=== PATIENT | male | born 1990 | race Caucasian/White ===

== ENCOUNTER 2016-12-09 06:28 | Emergency (ER) | payer OTHER ==
[~2016-12-09] VITALS: Ht 180.3 cm; Wt 77.2 kg
[2016-12-09 06:31] VITALS: BP 127/77; PULSE 65; RESP 16; O2SAT 99
--- NOTE | 2016-12-09 06:42 | ED.REPORT ---
HPI-Abd Pain M Under 39 Date of Service December 09, 2016 ED Provider: Turner You DO The patient is a 26 year old male with history of GERD and prior perforated appendix s/p multiple surgeries, who presents to the emergency department for abnormal labs. The patient has had problems with vomiting since he was about 19 and says for the last 2-3 weeks he has been having more problems with vomiting. Yesterday he went to urgent care and was told he had pancreatitis and was told to come to the ED. He states this is similar to the many times he has had these symptoms over the last several years. He reports his lipase was 150 yesterday so the urgent care sent him here. At this time he complains of 3/10 abdominal pain, nausea and vomiting. He normally takes compazine and Zofran for nausea and vomiting. He denies fever, chills, bloody emesis, diarrhea, constipation, bloody stools or melena. The patient has previous had an abdominal CT scan with no acute findings. He has also seen a home appliance tech and had an endoscopy and colonoscopy in the past. He does not currently take any medication for his reflux. Nursing Notes Stated Complaint: ABDOMINAL PAIN Chief Complaint: Male Abdominal Pain Nursing Notes Reviewed: Yes Allergies: Coded Allergies: ibuprofen (Unverified Adverse Reaction, Mild, 12/09/16) Scheduled Famotidine (Pepcid) 40 Mg Tablet 40 MG PO HS Scheduled PRN Ondansetron ODT (Zofran ODT) 4 Mg Tablet 4 MG PO Q4H PRN PRN For Nausea Prochlorperazine Maleate (Compazine) 10 Mg Tablet 10 MG PO TID PRN PRN For Nausea/Vomiting General Time Seen by MD: 06:41 Chief Complaint Other (abnormal labs) Hx Obtained From: Patient Arrived By: Walk-in Sudden in Onset?: No Onset Occurred: More than a week ago... 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 No history of IV drug use. Alcohol Use: "Social" Drug Use: Denies drug use Other Social History: Good social support, Local resident Occupation lives with girfriend, no work or school Ambulatory Status Independent Review of Systems Constitutional: Denies: Chills, Fever GI: Reports: Abdominal pain, Nausea, Vomiting, Denies: Bloody/tarry stool, Constipation, Diarrhea, Hematemesis, Hematochezia , Melena Complete sys rev & neg: except as marked. Physical Exam Initial Vital Signs Vital Signs (First) Date Time Temp Pulse Resp B/P Pulse Ox O2 Delivery O2 Flow Rate FiO2 12/09/16 06:31 36.3 65 16 127/77 99 Room Air Initial VS: Reviewed Head / Eyes: Atraumatic, Normocephalic, PERRL ENT: Mucous membranes moist, Conjunctiva normal, No scleral icterus Neck: Supple, Non-tender, Full range of motion Lymphatic: No lymphadenopathy Extremities: Vascular intact, Neuro intact, No swelling, No tenderness Skin: Warm, Dry, No cyanosis Neurologic: Alert, Oriented, Nonfocal Psychiatric: Mood/affect normal, Behavior normal, Normal thought content General/Constitutional: Awake, Alert, No acute distress, Well appearing Thin Respiratory / Chest: Atraumatic, Breath sounds NL, Breath sounds = bilat, No respiratory distress, No rales, No rhonchi, No wheezing, No stridor Cardiovascular: Heart rate NL, Regular rhythm, Heart sounds NL, Peripheral circulation NL Abdomen: Soft, Non-tender, McBurney's non-tender, No guarding, No rebound, BS normoactive, No distention, No hernia, No palpable mass Midline laparotomy scar, old. Back: Inspection NL, Non-tender, No CVA tenderness Interpretation & Diagnostics Interpretation & Diagnostics: Labs from urgent care from yesterday: lipase 150, otherwise CBC and CMP were normal Lab Results Interpretation Result Diagram: 12/09/16 0710 12/09/16 0710 Test 12/09/16 07:10 12/09/16 07:17 12/09/16 07:40 White Blood Count 6.1th/mm3 (3.8-10.1) Red Blood Count 4.52mil/mm3 (4.40-5.80) Hemoglobin 14.7g/dL (13.8-17.2) Hematocrit 42.5% (41.0-50.0) Mean Corpuscular Volume 94.0fL (81-100) Mean Corpuscular Hemoglobin 32.5pg (27.0-35.0) Mean Corpuscular Hemoglobin Concent 34.6% (32.0-37.0) Red Cell Distribution Width 12.6% (12.3-15.4) Platelet Count 203bil/L (150-400) Neutrophils (%) (Auto) 65.8% (40-74) Lymphocytes (%) (Auto) 21.3% (14-46) Monocytes (%) (Auto) 11.2% (4-12) Eosinophils (%) (Auto) 1.2% (0-5) Basophils (%) (Auto) 0.2% (0-3) Sodium Level 140mEq/L (134-144) Potassium Level 4.3mEq/L (3.5-5.2) Chloride Level 105mEq/L (97-108) Carbon Dioxide Level 23mmol/L (18-29) Blood Urea Nitrogen 11mg/dL (6-20) Creatinine 0.82mg/dL (0.76-1.27) Estimat Glomerular Filtration Rate 120mL/min (>59) Glucose Level 101mg/dL (60-99) Calcium Level 9.0mg/dL (8.5-10.1) Magnesium Level 1.9mg/dL (1.6-2.6) Total Bilirubin 0.6mg/dL (0.0-1.2) Aspartate Amino Transf (AST/SGOT) 17U/L (0-50) Alanine Aminotransferase (ALT/SGPT) 7U/L (0-44) Alkaline Phosphatase 49U/L (25-150) Total Protein 6.3g/dL (6.4-8.4) Albumin 3.8g/dL (3.4-5.0) Lipase 45U/L (13-60) Urine Color Straw (YELLOW) Urine Appearance Clear (CLEAR,HAZY) Urine pH 5.5 (5.0-8.0) Urine Specific [place] 1.025 (1.003-1.035) Urine Protein Negativemg/dL (NEG,TRACE) Urine Glucose (UA) Negativemg/dL (NEGATIVE) Urine Ketones Negativemg/dL (NEGATIVE) Urine Occult Blood Negative (NEGATIVE) Urine Nitrite Negative (NEGATIVE) Urine Bilirubin Negative (NEGATIVE) Urine Urobilinogen Normalmg/dL (NORMAL) Urine Leukocyte Esterase Negative (NEGATIVE) Urine RBC 0-2/hpf (0-2) Urine WBC 0-5/hpf (0-5) Urine Epithelial Cells Occasional/hpf (NONE-MOD) Urine Crystals None seen (NONE SEEN) Urine Bacteria None/hpf (NONE-FEW) Urine Hyaline Casts None/lpf (NONE) Urine Granular Casts None seen (NONE SEEN) Urine Waxy Casts None seen (NONE SEEN) Urine Red Blood Cell Casts None seen (NONE SEEN) Urine White Blood Cell Casts None seen (NONE SEEN) Urine Mucus None seen (None Seen) Urine Trichomonas None seen (NONE SEEN) Urine Yeast None (NONE SEEN) Urinalysis Comment None Urine Culture Reflexed Not indicated Hold Urine Received (Received) Hold [place] Top Tube Received (Received) Re-Eval/Medical Decision Med Decision/Clinical Course Overall patient has chronic abdominal pain, nausea, vomiting. I do not suspect any emergent medical conditions. This is not pancreatitis. It sounds like he has had extensive workup over the past few years and this is similar. His abdominal exam is benign I do not suspect an acute emergent medical condition. He has tolerated oral intake already this morning. Will discharge with Pepcid, Zofran, Compazine. Recommend close follow-up with gastroenterology. Return in follow-up precautions given. Source of Hx: Old records Re-Evaluation/Progress : Time of Eval: 08:01 Re-Evaluation/Progress Note: Rechecked the patient. He is feeling better. Discussed results, diagnosis, and plan for discharge. All questions were addressed. Counseled Regarding: Diagnosis, Lab results, Need for follow-up, When/why to return to ED Patient Discharge & Departure Primary Impression: Nausea and vomiting Vomiting type: unspecified Vomiting Intractability: unspecified Qualified Code: R11.2 - Nausea with vomiting, unspecified Disposition: Home Discharge Condition All VS Reviewed: Yes Condition: Stable Patient Instructions: Acute Nausea and Vomiting (GEN) Additional Instructions: Thank you for entrusting us with your care today. Your labs today look good. Your lipase was slightly elevated but not at the level that requires hospital admission. Continue to use the Zofran and Compazine as needed for your nausea. I recommend taking a Pepcid before bed at night. This may help your symptoms in the morning. Make sure to drink plenty of fluids. When you start to feel like eating, you should start with foods like bananas, rice, applesauce, and toast. Your next step should be to followup with a home appliance tech. We have given you a referral to Dr. Barnhart. Seek care sooner for increased pain, uncontrollable vomiting, fever, inability to keep fluids down, or any other new or concerning symptoms. Referrals: Niranjan Cintron MD (PCP) Jose Barnhart MD Attestation Portions of this note were transcribed by Madeline Martínez. I, Dr. You personally performed the history, physical exam and medical decision-making; I reviewed and confirmed the accuracy of the information in the transcribed note. Signed by: Carolin Farnsworth, 12/09/2016 at 0815. copies to: Niranjan Cintron MD; Jose Barnhart MD, Timothy S DO December 09, 2016 06:42 Madeline Martínez December 09, 2016 07:02
[2016-12-09] MEDS ORDERED: 0.9% Sodium Chloride 1,000 ML IV ONE (06:59)
[2016-12-09] MEDS ORDERED: Ondansetron 2 mg/mL 2 mL Inj IVPUSH PRN (07:00)
[2016-12-09 07:19] LABS: BASOPHILS % (AUTO) 0.2 % (0-3); EOSINOPHILS % (AUTO) 1.2 % (0-5); MONOCYTES % (AUTO) 11.2 % (4-12); Mean Corpuscular Hemoglobin 32.5 pg (27.0-35.0); NEUTROPHILS % (AUTO) 65.8 % (40-74); Platelet Count 203 bil/L (150-400)
[2016-12-09 07:48] LABS: APPEARANCE,URINE CLEAR (CLEAR,HAZY); COLOR,URINE STRAW (YELLOW); OCCULT BLOOD,URINE NEGATIVE (NEGATIVE); PH,URINE 5.5 (5.0-8.0); UROBILINOGEN,URINE NORMAL (NORMAL)
[2016-12-09 07:48] LABS: Magnesium 1.9 mg/dL (1.6-2.6)
[2016-12-09] MEDS ORDERED: PROC-4 PO (08:11)
[2016-12-09] MEDS ORDERED: ONDA4TAB9 PO (08:11)
[2016-12-09] MEDS ORDERED: FAMO40TA72 PO (08:11)
[2016-12-09 08:19] VITALS: BP 114/65; PULSE 63; RESP 12; O2SAT 97
== END 2016-12-09 08:11 | disposition home or self-care (01) ==
LOC: SED 06:28
DX: R11.2 Nausea with vomiting, unspecified (principal); R10.9 Unspecified abdominal pain; G89.29 Other chronic pain; K21.9 Gastro-esophageal reflux disease without esophagitis; F17.200 Nicotine dependence, unspecified, uncomplicated; Z98.890 Other specified postprocedural states; Z88.8 Allergy status to other drugs, medicaments and biological substances
CPT/HCPCS: 36415; 80053; 81000; 83690; 83735; 85025; 96360; 99284; J7030

== ENCOUNTER 2016-12-31 11:22 | Day surgery (SDC) | payer OTHER ==
[~2016-12-31] VITALS: Ht 177.8 cm; Wt 75.0 kg
[~2016-12-31 11:22] MED LIST: FAMO40TA72 PO; Lactated Ringer's 1,000 ML IV ONE; ONDA4TAB9 PO; PROC-4 PO
[2016-12-31] MEDS ORDERED: Propofol 10,000 mCg/mL 20 mL Inj ONE (11:23)
[2016-12-31] MEDS ORDERED: fentaNYL-PF 50 mCg/mL 2 mL Inj ONE (11:23)
[2016-12-31] MEDS ORDERED: SUCR1ORA2 PO (11:37)
[2016-12-31 11:41] VITALS: BP 116/70; PULSE 82; RESP 20; O2SAT 96
--- NOTE | 2016-12-31 12:56 | PCM.HPANE ---
Patient Data Date of Service: Dec 31, 2016 ([id number]) Surgeon Admitting Provider: Attending Provider:Chance Naik MD Primary Care Physician:Niranjan Cintron MD Other Provider:Joan Prather Anesthesia Reason for Visit Nausea And Vomiting In Adult Ht/WT & BMI Height (Feet): 5 Height (Inches): 10 Weight (Kilograms): 75 Body Mass Index 23.00 Allergies Coded Allergies: ibuprofen (Unverified Adverse Reaction, Mild, 12/31/16) Past Anesthesia History Anesthesia History: Denies:: Abnormal Airway, Anesthesia Reactions, Difficult Intubation, Fam Anesthesia Reaction, Fam Malignant Hypertherm, Malignant Hyperthermia Diabetes History Hx Diabetes?: No MRSA MRSA: No Medications Active Scripts Prochlorperazine Maleate (Compazine)10 Mg [id number] Mg PO TID PRN For Nausea/ Vomiting #15 TABLET Prov:Turner You DO 12/09/16 Ondansetron ODT (Zofran ODT)4 Mg Tablet4 Mg PO Q4H PRN For Nausea #14 TABLET Prov:Turner You DO 12/09/16 Famotidine (Pepcid)40 Mg [id number] Mg PO HS #30 TABLET Prov:Turner You DO 12/09/16 Reported Medications Sucralfate Susp (Carafate Susp)1 Gm/10 Ml Oral.susp1 Gm PO QID Ref 0 12/31/16 History History of ENT Problems?: Yes HEENT History: Denies:: Abnormal Airway Difficult Intubation Hearing Problem Denture Type: None Teeth Condition: Broken Teeth Tooth Decay Inflamed Gums Other HEENT Pertinent History: PT STATES RIGHT AND LEFT UPPER MOLARS ARE INFLAMMED AND POSSIBLY NEED TO BE REMOVED, SAYS THEY ARE SENSITIVE AT TIMES AND HE NEEDS TO GO TO THE DENTIST TO GET THEM FIXED. STATES HE DOESNT THINK THEY ARE LOOSE THOUGH. Hx of Heart Problems?: No Cardiovascular History: Denies:: Congestive Heart Failure Hypertension Hx of Respiratory Problem?: No Respiratory History: Positive for:: Cough Denies:: Tuberculosis Hx Neurologic Problems?: No Neurological History: Denies:: CVA Hx of GI Problems?: Yes Gastrointestinal History: Positive for:: Gastroesphageal Reflux Denies:: Hepatitis Hx of Problems?: No Hx Musculoskeletal Problems?: No Musculoskeletal History: Denies:: Joint Replacement Psycho Social History: Denies:: Anxiety Hx Depression Hx Surgeries?: Yes (APPENDECTOMY) Hx Any Other Health Problems?: No Hx Diabetes: No Hx Alcohol Use: Yes (OCCAS)Hx Substance Use: Yes (OCCASIONAL MARIJUANA, TRYING TO QUIT) Smoking Status: Current Every Day Smoker Have You Smoked inLast 12 mo: Yes Stop/Bang Treated for Sleep Apnea?: No Do You Have a CPAP Machine?: No S-Snoring: Do You Snore Loudly: Yes T-Tired: feel tired, fatigued: No O-Obsered: Observed not breath: No A- Age over 50: No G- Gender Male: Yes JALEEL Risk Assessment: Low Risk, <3 Yes Risk Assessment Category Category 1A: Patient has history of documented sleep apnea, and HAS NOT received any narcotic, sedative or anesthesia administration during this stay. Category 1B: Patient has history of documented sleep apnea, and HAS received any narcotic , sedative or anesthesia administration during this stay Category 2: Patient has SUSPECTED Obstructive Sleep Apnea, and HAS received any narcotic , sedative or anesthesia administration during this stay. Category 3: Patient has SUSPECTED Obstructive Sleep Apnea and HAS NOT received narcotic, sedative or anesthesia administration during this stay. Category 4: Outpatient in Procedural Areas with known sleep apnea or who screen positive for High Risk via the STOP/BANG questionnaire. Exam Exam Vital Signs Vital Signs Date Time Temp Pulse Resp B/P Pulse Ox O2 Delivery O2 Flow Rate FiO2 12/31/16 11:41 82 20 116/70 96 Room Air General Appearance: Alert, Oriented X3, Cooperative HEENT/AIRWAY: MP 1 Lungs: Clear to Auscultation Heart: Exam Unremarkable Plan Impression Patient chart reviewed, patient interviewed and anesthestic plan with risks, benefits, and alternatives discussed, and informed consent obtained. NPO per Anesth. Guidelines: Yes ASA Physical Status: ASA2 Mod Systemic Disease Anesthetic Plan: GA Bene/Risks/Altern/Consents: Yes HP Complete Prior to Induction: Yes aMnish Rosa MD Dec 31, 2016 12:56
--- NOTE | 2016-12-31 13:17 | PCM.ENDEGD ---
EGD Date of Service: Dec 31, 2016 Physician Chance Naik MD Pre Procedure Diagnosis: Nausea vomiting Post Procedure Dx & Findings: Irregular Z line Procedure Esophagogastroduodenoscopy After proper sedation, Olympus video endoscope was inserted into patient's mouth and esophagus was successfully intubated. Scope introduced esophagus. Esophagus showed normal shiny whitish mucosa consistent with squamous cell component. Z line was partly irregular at 46 cm from the incisors. Biopsies done. Scope was further advanced to the stomach. Stomach showed normal shiny mucosa with normal appearing rugae folds without any ulcer mass erosion. Cardia fundus body antrum pylorus were all visualized. Retroflexion was done. Stomach was easily inflated and deflatable using air. Scope further events to the distal duodenum. Duodenum revealed normal villous structures with normal appearing folds without any mass ulcer erosion. Impression Irregular Z line No cause of nausea vomiting Recommendation Avoid biopsies Presedation Assessment Risks and Benefits Informed consent was obtained from the patient after all risks and benefits including but not limited to drug reaction, infection, pain, bleeding, perforation, as well as alternatives were discussed. Patient monitoring Continuous pulse oximetry, cardiac monitoring, blood pressure monitoring, IV access, and oxygen at 2L per nasal cannula. Complications There were no periprocedural complications identified. Post Procedure Plan Post Procedure Recommendations 1. Restrict activities today. 2. Resume normal activities in the morning. 3. Resume medications. 4. GERD behavioral modification: - Avoid fatty, acidic, spicy, large meals - Do not lie down after meals - Do not eat or drink anything for at least 2 1/2 hours before going to bed at night - Discontinue tobacco and alcohol - Decrease or avoid caffeine - Avoid chocolate and mints - Decrease weight - Avoid aspirin and non steroidal anti-inflammatory agents (NSAID) such as Aleve, Advil, Mobic, Naproxen, Ibuprofen, etc 5. Add proton pump inhibitor. Take 30 minutes before 1st meal of the day. 6. Patient informed of normal post procedure side effects as bloating, drowsiness, blood streaking in the stool 7. If gastric biopsy reveal H.pylori, continue with appropriate treatment 8. If small bowel biopsy reveals celiac, continue with appropriate treatment 9. Please don't hesitate to call me with any questions Chance Naik MD Dec 31, 2016 13:17
[2016-12-31 13:20] VITALS: BP 106/59; PULSE 101; RESP 16; O2SAT 97
--- NOTE | 2016-12-31 13:24 | PCM.ANEP1 ---
Post Anesthesia PACU Phase 1 Assessment Vital Signs 106/59, 98%, 12, 101 Vital Signs Date Time Temp Pulse Resp B/P Pulse Ox O2 Delivery O2 Flow Rate FiO2 12/31/16 11:41 82 20 116/70 96 Room Air Anesthetic Administered: GA Level of Alertness: Awake, talking DESIR's with Equal Strength: Yes Pain: No Nausea or Vomiting: No CV Function & Hydration Stable: Yes Airway Device: NONE Oxygen Delivery: Room Air Lungs: Clear to Auscultation Dermatome Level: Full Sensation Summary EASY SEDATION PACU Phase 2 Assessment Complications: No Follow up Care: No Patient Instructions Provided: N/A Manish Rosa MD Dec 31, 2016 13:24
[2016-12-31 13:30] VITALS: BP 119/79; PULSE 88; RESP 16; O2SAT 97
[2016-12-31] MEDS ORDERED: Lactated Ringer's 1,000 ML IV ONE (13:49)
--- NOTE | 2017-01-03 17:42 | PATH ---
SURGICAL PATHOLOGY Attending Physician:Chance Naik M.D. CASE STATUS: Signed Out PATIENT NAME: BYRON CASEY PID: [id number] : 1990 DATE COLLECTED:12/31/2016 19:48 SPECIMEN: Esophagus, Biopsy CLINICAL HISTORY: 1). ESOPHAGUS BIOPSY FINAL DIAGNOSIS: Esophagus, Biopsy: Predominantly squamous mucosa with no diagnostic abnormality. No increased inflammatory cells/eosinophils identified. Scant portions of columnar mucosa are very focally attached and demonstrate no diagnostic abnormality. Negative for intestinal metaplasia. Negative for dysplasia and malignancy. ICD10: K20.9 GROSS DESCRIPTION: The specimen is received in one formalin filled container labeled with the patient's name, sublabeled "esophagus" and consists of 2 portions of tissue which aggregate to 0.3 x 0.2 x 0.2 CM. The specimen is entirely submitted in one cassette. 12/31/2016 [facility] ICD-9 CODES: CPT CODES: 1: 67239 Electronically Signed Out Cinthia Weir MD [facility] [address], [place] [address] Technical component performed at [facility], [facility] [address], [place], [address]
== END 2016-12-31 23:59 | disposition home or self-care (01) ==
LOC: END 11:22
PROVIDERS: ATTEND Internal Medicine
DX: R11.2 Nausea with vomiting, unspecified (principal); K21.9 Gastro-esophageal reflux disease without esophagitis; F17.200 Nicotine dependence, unspecified, uncomplicated; F12.90 Cannabis use, unspecified, uncomplicated
CPT/HCPCS: 43239; 88305; J2250; J3010; J7120